=== PATIENT | male | born 1970 | race Caucasian/White ===

== ENCOUNTER 2020-03-04 11:10 | Outpatient (CLI) | payer OTHER, SELFPAY ==
--- NOTE | ~2020-03-04 | XR_ITS ---
EXAMINATION: XR abdomen/kub 1V EXAM DATE: 03/04/2020 11:36 INDICATION: Left flank pain. TECHNIQUE: Frontal projection(s) of the abdomen for interpretation. There is no prior study for samantha valencia. FINDINGS: There is expected amount of colonic stool and gas. No small bowel dilation, nonobstructiv e bowel gas pattern. There are no suspicious calcifications identified. There is no organomegaly suspected. The bones are unremarkable. IMPRESSION: Unremarkable abdomen x-ray exam. Reviewed, dictated and finalized at location A.
--- NOTE | ~2020-03-04 | CT_ITS ---
EXAMINATION: CT abdomen pelvis wo con EXAM DATE: 03/04/2020 11:36 INDICATION: 2 weeks of left flank pain. History of kidney stones. TECHNIQUE: Spiral CT of the abdomen and pelvis was performed without contrast. Axial, coronal and sag ittal images were reviewed. The dose-length product (DLP) for this examination was 185.08 mGy-cm. T he exposure was tailored according to patient size (auto mA exposure control), and iterative reconstr uction (ASIR) was used as additional dose reduction technique. Comparison is made to prior examinatio n from 11/12/2018. FINDINGS: Previously seen right UVJ stone has passed. There is no nephrolithiasis or hydronephrosis. The prostate is unremarkable. The bladder is unremarkable. The liver, spleen, adrenal glands and pancreas are unremarkable. Gallbladder is unremarkable. No biliary obstruction. There is no retrop eritoneal or pelvic lymphadenopathy. The appendix is normal. The stomach and small bowel are unremarkable. There is expected amount of c olonic stool. No free intraperitoneal gas. The heart is normal in size. There are no pericardial or pleural effusions. The lung bases are unremarkable. There are no osteoblastic or osteolytic les ions identified. There is chronic L5 spondylolysis with grade 1 anterolisthesis L5 on S1. IMPRESSION: 1. No nephrolithiasis, hydronephrosis or acute intra-abdominal findings. Reviewed, dictated and finalized at location A.
== END 2020-03-04 11:11 | disposition home or self-care (01) ==
PROVIDERS: Visit Provider Nurse Practitioner Adult Health
DX: R10.9 Unspecified abdominal pain (principal)
CPT/HCPCS: 74018; 74176

== ENCOUNTER 2020-05-16 01:56 | Outpatient (CLI) | payer OTHER, SELFPAY ==
[2020-05-16 18:35] LABS: SARS-CoV-2 RNA PCR Negative
== END 2020-05-16 01:57 | disposition home or self-care (01) ==
LOC: ANHCOVIDDT 01:56
PROVIDERS: PCP Internal Medicine; Visit Provider Internal Medicine Gastroenterology
DX: Z01.812 Encounter for preprocedural laboratory examination (principal); Z20.828 Contact with and (suspected) exposure to other viral communicable diseases
CPT/HCPCS: 87635; C9803; U0003

== ENCOUNTER 2020-05-19 00:23 | Day surgery (SDC) | payer OTHER, SELFPAY ==
[2020-05-13 10:52] VITALS: BMI 25.4
--- NOTE | 2020-05-18 12:39 | WPDANESEPPF ---
Anes - Initial Pre Proc Eval Procedure: Operation Date: 05/19/20 10:00 Proposed Procedures p Colonoscopy - Roddy Chowdhury DO Date/Time: 05/18/20 12:39 Surgeon: Roddy Chowdhury DO Pre Op Diagnosis: LLQ pain Patient Data Age: 49 Gender: M Height: 1.75 m Weight: 78 kg Allergies Allergy/AdvReac Type Severity Reaction Status Date / Time No Known Allergies Allergy Verified 05/19/20 08:48 Home Medications Medication Instructions Recorded Confirmed Type Lacto.acidophilus-Bif.animalis 1 cap PO DAILY 05/13/20 05/19/20 History [Daily Probiotic] Patient hx anesthesia problems: none Family hx anesthesia problems: none [facility] Past Medical History Medical History (Updated 05/19/20 @ 08:49 by Wang Claudio DO) Renal stones Social History Social History Smoking packs per day: 0.5 Smoking cigarettes per day: 10.0 Years smoked: 30 Smoking pack-years: 15.00 Smoking status: Current every day smoker Tobacco type: cigarettes Alcohol intake: current Drinks per week: 21 Substance use: never Substance use type: does not use Living arrangements: alone Spiritual care concerns: No Anes - Eval Final PreProcedure Day of Procedure 05/18/20 12:39 Patient weight: normal Heart: regular rate and rhythm Lungs: clear to auscultation and normal air movement Airway: Mallampati scale class II Neurological: alert and oriented Last oral intake: >/= 8 hours ASA classification: III Emergent: no Anesthetic plan: proceed Anesthesia type and monitoring: general GIVS and standard monitoring Informed Consent: The patient's anesthetic plan and its attendant risks and benefits were discussed with the patient/family/POA. Questions were solicited and answers provided to the satisfaction of the patient/family/POA.
[2020-05-19 08:49] VITALS: BMI 25.6
[2020-05-19 08:50] VITALS: BP 125/72; PULSE 69; RESP 16; TEMP 36.4; O2SAT 98
[2020-05-19] MEDS: LACTATED RINGERS 1,000 ML 150 ML IV CONT (08:53)
--- NOTE | 2020-05-19 09:27 | P.HP_ITS ---
H&P: HPI History of Present Illness Date/Time: 05/19/20 09:27 Chief Complaint: See below Narrative: reason for visit is colonoscopy. This very pleasant gentleman is seen in consultation at the request of the [facility] physician. Impression: Here is a gentleman with left lower quadrant abdominal discomfort. Will evaluate for underlying inflammatory neoplastic disease. This may be functional in nature. He does have rectal bleeding which is probably perianal in origin. Renal lithiasis. Recommendation: Colonoscopy. History: Very pleasant gentleman is being admitted for left lower quadrant p ain. Last summer months he describes a left lower quadrant discomfort. At times it is sharp in and at times he does not notice it is there. The pain is unaffected by eating or defecation. He denies any significant constipation or diarrhea. He had CT imaging done for a presumed renal stone. CT imaging was unrewarding. The patient states the pain is more like a discomfort at this juncture. Upper gastrointestinal symptoms are denied. Fever, chills and night sweats or tonight. He denies any significant weight loss. He is here for colonoscopy. Physical examination: General: very pleasant patient in no acute distress. HEENT: Head was normocephalic sclerae is clear mouth without masses neck was supple. Heart: Rate rhythm regular without S3 or S4. Lungs: CTA. Abdomen: Soft with no guarding or rigidity. Bowel sounds were active. Neurologic: Cranial nerves 2 through 12 intact. No focal defects. No clonus. Musculoskeletal system: Revealed no joint tenderness or swelling no muscle atrophy. Extremities: Reveal no significant edema. Skin: Warm and dry with normal turgor. Mental status: intact. Patient is alert and oriented. Review of Systems Review of Systems: All systems reviewed & are unremarkable except as noted in HPI and below [facility] Past Medical History Medical History (Updated 05/19/20 @ 08:49 by Wang Claudio DO) Renal stones Social History Social History Smoking packs per day: 0.5 Smoking cigarettes per day: 10.0 Years smoked: 30 Smoking pack-years: 15.00 Smoking status: Current every day smoker Tobacco type: cigarettes Alcohol intake: current Drinks per week: 21 Substance use: never Substance use type: does not use Living arrangements: alone Spiritual care concerns: No Meds Home Medications and Allergies Home Medications Medication Instructions Recorded Confirmed Type Lacto.acidophilus-Bif.animalis 1 cap PO DAILY 05/13/20 05/19/20 History [Daily Probiotic] Allergies Allergy/AdvReac Type Severity Reaction Status Date / Time No Known Allergies Allergy Verified 05/19/20 08:48 Vital Signs Vital Signs - 24 hr 05/19/20 08:50 Temperature 36.4 C L Pulse Rate 69 Respiratory Rate 16 Blood Pressure 125/72 Pulse Oximetry 98
[2020-05-19] MEDS: SIMETHICONE ORAL SUSPENSION 20 MG/0.3 ML 30 ML BOTTLE 0.6 ML IRRIGATION (09:42)
[2020-05-19 09:59] VITALS: BP 106/65; PULSE 69; RESP 25; O2SAT 99
[2020-05-19 10:09] VITALS: BP 103/64; PULSE 72; RESP 21; O2SAT 100
[2020-05-19 10:19] VITALS: BP 117/76; PULSE 60; RESP 18; O2SAT 100
== END 2020-05-19 11:13 | disposition home or self-care (01) ==
PROVIDERS: PCP Internal Medicine; Visit Provider Internal Medicine Gastroenterology
PROC: 0DJD8ZZ Inspection of Lower Intestinal Tract, Via Natural or Artificial Opening Endoscopic (ICD-10-PCS; CPT 45378; principal; 2020-05-19 10:00)
DX: R10.32 Left lower quadrant pain (principal); K62.5 Hemorrhage of anus and rectum; K62.4 Stenosis of anus and rectum; K64.8 Other hemorrhoids; K64.4 Residual hemorrhoidal skin tags; K63.5 Polyp of colon; K62.1 Rectal polyp; Z87.442 Personal history of urinary calculi; F17.210 Nicotine dependence, cigarettes, uncomplicated
CPT/HCPCS: 45380; 45385; 87635; 88305; J2704; J7120; U0003